=== PATIENT | female | born 1990 | race Caucasian/White ===

== ENCOUNTER 2018-10-25 19:29 | Emergency (ER) | payer MEDICAID, OTHER ==
[~2018-10-25] VITALS: Ht 154.9 cm; Wt 57.2 kg
[2018-10-25 19:45] VITALS: BP 140/94
--- NOTE | 2018-10-25 20:13 | ED Respiratory ---
General Chief Complaint: Respiratory Problems Stated Complaint: SKIN RASH, SOB Nursing Triage Note: Pt. reported that she has been SOB, has been having a IVY, has had 3 weeks of forgetfulness, and feels she has been exposed to mold where she lives. Pt. does not appear to be SOB at this time. O2 sats are 98% on room air. History of Present Illness Date Seen by Provider: Oct 25, 2018 Time Seen by Provider: 19:53 Timing/Duration: constant Severity: mild Prior Episodes/Possible Cause: allergen exposure Modifying Factors: Worse With Activity Associated Symptoms: shortness of breath This is a 28-year-old female who complains of a rash. He is concerned that this is related to mold exposure, she just had blood tests drawn today at her doctor' s office for that specific purpose. She also mentions that she's been feeling slightly short of breath since before giving to her son this past July , this is not worse recently. She's had a mild nonproductive cough, also some nausea and some nonbloody non-melanotic diarrhea. No abdominal pain. She has mild chest congestion but no chest pain per se. No pleuritic pain. No leg swelling. No history of blood clots. No hormonal therapy. No hemoptysis. Her rash is itchy. She has not tried any specific interventions like Benadryl or topical treatments. She has no symptoms affecting the mucous membranes. Allergies and Home Medications Allergies Coded Allergies: No Known Drug Allergies (Unverified , 10/25/18) Patient Home Medication List Home Medication List Reviewed: Yes Review of Systems Review of Systems Constitutional: no symptoms reported EENTM: no symptoms reported Respiratory: see HPI Cardiovascular: see HPI Gastrointestinal: see HPI Genitourinary: no symptoms reported Musculoskeletal: no symptoms reported Skin: see HPI Psychiatric/Neurological: No Symptoms Reported Hematologic/Lymphatic: No Symptoms Reported Immunological/Allergic: no symptoms reported Past Llfkgva-Ilngyn-Rsaqhm Hx Patient Social History Recent Foreign Travel: No Contact w/Someone Who Travel: No Recent Infectious Disease Expo: No Past Medical History : No Physical Exam Vital Signs - First Documented 10/25/18 19:45 Temp 98.1 Pulse 88 Resp 16 B/P (MAP) 140/94 (109) Pulse Ox 98 Capillary Refill : Less Than 3 Seconds Height: 5'1.00" Weight: 126lbs. oz. 57.038374fb; BMI Method:Stated General Appearance: no apparent distress Eyes: Bilateral Eye Normal Inspection HEENT: normal ENT inspection, pharynx normal Respiratory: lungs clear; No crackles, No rales, No rhonchi, No stridor Cardiovascular: normal peripheral pulses, regular rate, rhythm, other (brisk capillary refill) Gastrointestinal: non tender, soft Neurologic/Psychiatric: alert, normal mood/affect, oriented x 3; No abnormal gait Skin: warm/dry, other (scattered very faintly erythematous and blanching macular lesions on the extremities, sparing the palms and soles, no petechiae) Progress/Results/Core Measures Suspected Sepsis Recent Fever Within 48 Hours: No Infection Criteria Present: None New/Unexplained Altered Menta: Yes Sepsis Screen: No Definite Risk SIRS Temperature:98.1 Pulse: 88 Respiratory Rate: 16 Laboratory Tests 10/25/18 20:18: White Blood Count 6.7 Blood Pressure / Mean: Laboratory Tests 10/25/18 20:18: Creatinine 0.72, Platelet Count 380, Total Bilirubin 0.3 Results/Orders Lab Results Laboratory Tests Test 10/25/18 20:18 Range/Units White Blood Count 6.7 4.3-11.0 10^3/uL Red Blood Count 4.81 4.35-5.85 10^6/uL Hemoglobin 12.8 11.5-16.0 G/DL Hematocrit 41 35-52 % Mean Corpuscular Volume 27 L 80-99 FL Mean Corpuscular Hemoglobin 27 25-34 PG Mean Corpuscular Hemoglobin Concent 31 L 32-36 G/DL Red Cell Distribution Width 14.8 H 10.0-14.5 % Platelet Count 380 130-400 10^3/uL Mean Platelet Volume 9.9 7.4-10.4 FL Urine Test NEGATIVE NEGATIVE Sodium Level 141 135-145 MMOL/L Potassium Level 3.3 L 3.6-5.0 MMOL/L Chloride Level 101 98-107 MMOL/L Carbon Dioxide Level 30 21-32 MMOL/L Anion Gap 10 5-14 MMOL/L Blood Urea Nitrogen 13 7-18 MG/DL Creatinine 0.72 0.60-1.30 MG/DL Estimat Glomerular Filtration Rate > 60 BUN/Creatinine Ratio 18 Glucose Level 99 70-105 MG/DL Calcium Level 9.6 8.5-10.1 MG/DL Corrected Calcium 8.5-10.1 MG/DL Total Bilirubin 0.3 0.1-1.0 MG/DL Aspartate Amino Transf (AST/SGOT) 23 5-34 U/L Alanine Aminotransferase (ALT/SGPT) 18 0-55 U/L Alkaline Phosphatase 76 40-136 U/L Troponin T < 6 <=10 NG/L Total Protein 8.3 H 6.4-8.2 GM/DL Albumin 4.7 H 3.2-4.5 GM/DL My Orders Orders - DIANE DALE T DO Chest Pa/Lat (2 View) (10/25/18 19:45) Ekg Tracing (10/25/18 19:45) Hcg,Qualitative Urine (10/25/18 19:45) Cbc No Diff (10/25/18 20:02) Comprehensive Metabolic Panel (10/25/18 20:02) Vital Signs/I&O 10/25/18 10/25/18 19:45 19:45 Temp 98.1 Pulse 88 Resp 16 B/P (MAP) 140/94 (109) Pulse Ox 98 Capillary Refill : Less Than 3 Seconds Progress Note : Progress Note This is a 28-year-old female who complains of a rash for which she is being evaluated by her primary care physician, some suspicion of mold exposure from her apartment. She has no signs of anaphylaxis. The rash is very nonspecific. There is no mucous membrane involvement, no new systemic symptoms other than ongoing mild shortness of breath and a mild dry cough and diarrhea. She is nontoxic appearing. Slightly hypertensive at initial check, I advised patient to have this rechecked with her primary care physician. We will check basic labs , chest x-ray to evaluate for either focal infiltrate or signs of cardiomegaly and pulmonary vascular congestion although physical exam is not suggestive of CHF. We will check an ECG as well. If our workup is unremarkable I recommended the patient trial Benadryl and follow-up with her primary care physician, she will return for any new or worsening symptoms. ECG EKG : Comment 2026: Normal sinus rhythm rate of 75, normal axis, no ST or T-wave abnormalities. Diagnostic Imaging Diagonstic Imaging: Xray Comments EP interpretation: Airway is midline. No obvious bony or soft tissue abnormalities. Cardiomediastinal silhouette is unremarkable. Diaphragmatic borders are grossly normal with no effusions. No pneumothoraces. There is no focal infiltrate. Reviewed: Reviewed by Me Departure Impression Primary Impression: Rash Additional Impressions: Dyspnea Hypertension Disposition: HOME, SELF-CARE Condition: Stable Departure-Patient Inst. Referrals: NO,LOCAL PHYSICIAN (PCP) Primary Care Physician Patient Instructions: Blood Pressure Testing and Measurement DIANE DALE DO Oct 25, 2018 20:13
[2018-10-25 20:41] LABS: HEMOGLOBIN 12.8 G/DL (11.5-16.0); MEAN PLATELET VOLUME 9.9 FL (7.4-10.4); RED CELL DISTRIBUTION WIDTH 14.8 % (10.0-14.5); WHITE BLOOD COUNT 6.7 10^3/uL (4.3-11.0)
--- NOTE | 2018-10-25 20:58 | Diagnostic Imaging Report ---
INDICATION: Headache. Shortness of air COMPARISON: None FINDINGS: Frontal and lateral views of the chest demonstrate normal heart size and pulmonary vascularity. The lungs are clear. There are no signs of infiltrate, pleural effusions or pneumothoraces. The visualized osseous structures show no acute abnormalities. IMPRESSION: 1. No acute process. No signs of infiltrates, effusions or pneumothoraces. Dictated by: Dictated on workstation # [id number]
--- OUTSIDE RECORDS SUMMARY | 2018-10-25 20:59 | XMS REPORT ---
Author Author MILTON BARLOW Organization [facility] Address Unknown Care Team Providers Care Adjuster Arbitrator Name Role Phone MILTON BARLOW Unavailable PROBLEMS Type Condition ICD9-CM Code NOH34-PD Code Onset Dates Condition Status SNOMED Code Assessment Dental examination Z01.20 Mar, Active [id number] ALLERGIES Substance Reaction Event Type Date Status N.K.D.A. Unknown Non Drug Allergy Mar, Unknown SOCIAL HISTORY No smoking Hx information available PLAN OF CARE VITAL SIGNS Blood pressure systolic 115 mmHg 2016-04-14 Blood pressure diastolic 77 mmHg 2016-04-14 MEDICATIONS Medication Instructions Dosage Frequency Start Date End Date Duration Status Amoxicillin 500 MG Orally 4 times a day 1 capsule 6h 7 days Active [place] 5-325 MG Orally every 6 hrs 1 tablet as needed 6h 4 days Active RESULTS No Results PROCEDURES Procedure Date Ordered Related Diagnosis Body Site LTD ORAL EVALUATION - PROBLEM FOCUS Apr 14, 2016 INTRAORL-PERIAPICAL 1 FILM [id number] Apr 14, 2016 IMMUNIZATIONS No Known Immunizations
--- OUTSIDE RECORDS SUMMARY | 2018-10-25 20:59 | XMS REPORT ---
Author Author MILTON BARLOW [facility] Address Unknown Care Team Providers Care School Psychology Specialist Name Role Phone MILTON BARLOW Unavailable PROBLEMS Unknown Problems ALLERGIES No Information SOCIAL HISTORY Never Assessed PLAN OF CARE VITAL SIGNS MEDICATIONS Unknown Medications RESULTS No Results PROCEDURES Procedure Date Ordered Result Body Site Billing Notes on claim Oct 21, 2016 IMMUNIZATIONS No Known Immunizations
[2018-10-25 21:00] LABS: ALANINE AMINOTRANSFERASE 18 U/L (0-55); ALBUMIN 4.7 GM/DL (3.2-4.5); ALKALINE PHOSPHATASE 76 U/L (40-136); BILIRUBIN,TOTAL 0.3 MG/DL (0.1-1.0); BUN/CREATININE RATIO 18; CALCIUM 9.6 MG/DL (8.5-10.1); CARBON DIOXIDE 30 MMOL/L (21-32); CHLORIDE 101 MMOL/L (98-107); CREATININE SERUM 0.72 MG/DL (0.60-1.30); GFR ESTIMATED > 60; GLUCOSE 99 MG/DL (70-105); POTASSIUM 3.3 MMOL/L (3.6-5.0); SODIUM 141 MMOL/L (135-145); TOTAL PROTEIN 8.3 GM/DL (6.4-8.2)
[2018-10-25 21:16] VITALS: BP 138/88
== END 2018-10-25 21:16 | disposition home or self-care (01) ==
LOC: EDUNIT# 19:29 → ER FS 19:31
DX: R21 Rash and other nonspecific skin eruption (principal); R06.00 Dyspnea, unspecified; I10 Essential (primary) hypertension
CPT/HCPCS: 36415; 71046; 80053; 84484; 84703; 85027; 93005

== ENCOUNTER 2023-02-24 20:39 | Observation (INO) | payer MEDICAID ==
[~2023-02-24 20:39] MED LIST: ACET-93 PO; DOCU-239 PO; IBUP-1780 PO; OXC5T PO
--- NOTE | 2023-02-24 20:49 | ED GU-Female ---
General Chief Complaint: OB < 20 WEEKS Stated Complaint: ABNORMAL VAG BLEEDING Source: patient Exam Limitations: no limitations History of Present Illness Date Seen by Provider: Feb 24, 2023 Time Seen by Provider: 20:39 Initial Comments 32-year-old female presents to the emergency department today for vaginal bleeding. She states symptoms started about 2 and half hours ago. She states she was diagnosed with a miscarriage yesterday after about 4 weeks gestation that some mild bleeding but her bleeding increased this evening. No dizziness lightheadedness or shortness of breath. She is G9, P7 with a miscarriage 10 years ago. She had previously seen Dr. Monroe but he recently retired. All other systems reviewed and negative except documented per HPI. Voice recognition software was used to help create this chart Allergies and Home Medications Allergies Coded Allergies: No Known Drug Allergies (Unverified , 10/25/18) Patient Home Medication List Home Medication List Reviewed: Yes Acetaminophen (Acetaminophen) 500 Mg Tablet, 1,000 MG PO Q6HR Prescribed by: AMNA MONROE on 02/05/20618 Docusate Sodium (Dok) 100 Mg Capsule, 100 MG PO BID Prescribed by: AMNA MONROE on 02/05/20618 Ibuprofen (Ibuprofen) 800 Mg Tablet, 800 MG PO Q8HR Prescribed by: AMNA MONROE on 02/05/20618 Oxycodone Hcl (Oxyir Tablet) 5 Mg Tablet, 5 MG PO Q6H PRN for PAIN-SEVERE (8-10) Prescribed by: AMNA MONROE on 02/05/20618 Review of Systems Review of Systems Constitutional: see HPI Past Tildzmt-Yfdwua-Cggxma Hx Patient Social History Tobacco Use?: No Substance use?: No Alcohol Use?: No Pt feels they are or have been: No Seasonal Allergies Seasonal Allergies: Yes Past Medical History Surgeries: No Respiratory: Yes (Has a hx of sport inducded asthma) Asthma Currently Using CPAP: No Currently Using BIPAP: No Cardiac: No Neurological: No Genitourinary: No Gastrointestinal: No Musculoskeletal: No Endocrine: No HEENT: No Cancer: No Psychosocial: No Integumentary: No Recent Skin Changes Blood Disorders: No Family Medical History FH: anemia 19 MOTHER Hypertension 19 FATHER Physical Exam Vital Signs Vital Signs - First Documented 02/24/23 20:41 Temp 36.5 Pulse 100 Resp 18 B/P (MAP) 155/90 (111) Pulse Ox 100 O2 Delivery Room Air Capillary Refill : Height, Weight, BMI Height: 5'1.00" Weight: 126lbs. oz. 57.046355fz; 27.41 BMI Method:Stated General Appearance: WD/WN, no apparent distress HEENT: normal ENT inspection, pharynx normal Neck: non-tender, supple Cardiovascular: regular rate, rhythm, no murmur Respiratory: chest non-tender, lungs clear, normal breath sounds Gastrointestinal: normal bowel sounds, soft, no organomegaly, tenderness (Mild tenderness in the suprapubic region. No rebound or guarding.) Extremities: non-tender, normal inspection, no pedal edema Neurologic/Psychiatric: alert, oriented x 3 Skin: normal color, warm/dry Progress/Results/Core Measures Suspected Sepsis SIRS Temperature: Pulse: Respiratory Rate: Blood Pressure / Mean: Results/Orders My Orders Orders - SHERRY MENEZES DO Cbc And Manual Diff (02/24/23 20:55) Type And Screen (02/24/23 20:56) Ed Iv/Invasive Line Start (02/24/23 20:59) Vital Signs/I&O 02/24/23 20:41 Temp 36.5 Pulse 100 Resp 18 B/P (MAP) 155/90 (111) Pulse Ox 100 O2 Delivery Room Air Capillary Refill : Departure Communication (Admissions) Patient is currently hemodynamically stable, borderline tachycardic with a heart rate of 100. Pelvic exam reveals copious vaginal bleeding. She has some mild abdominal tenderness. We are unable to do a type and screen here. I talked to Dr. Wheat who is on-call for OB. She agrees to transfer for D&C. I spoke to the the housecleaner floor who will arrange bed assignment and call in the OR staff. CBC is pending at this time. Impression Primary Impression: Episode of heavy vaginal bleeding Disposition: 30 STILL A PATIENT Condition: Stable Departure-Patient Inst. Referrals: JAQUAN INFANTE DO (PCP) Primary Care Physician SHERRY MENEZES DO Feb 24, 2023 20:49
[2023-02-24 21:10] LABS: BASOPHILS % (AUTO) 0 % (0-10); EOSINOPHILS # (AUTO) 0.2 10^3/uL (0.0-0.3); EOSINOPHILS % (AUTO) 2 % (0-10); HEMATOCRIT 37 % (35-52); HEMOGLOBIN 12.2 g/dL (11.5-16.0); LYMPHOCYTES # (AUTO) 2.5 10^3/uL (1.0-4.0); LYMPHOCYTES % (AUTO) 23 % (12-44); MEAN CORPUSCULAR HEMOGLOBIN 29 pg (25-34); MEAN CORPUSCULAR HGB CONC 33 g/dL (32-36); MEAN CORPUSCULAR VOLUME 87 fL (80-99); MEAN PLATELET VOLUME 10.1 fL (9.0-12.2); MONOCYTES # (AUTO) 0.6 10^3/uL (0.0-1.0); MONOCYTES % (AUTO) 6 % (0-12); NEUTROPHILS # (AUTO) 7.3 10^3/uL (1.8-7.8); NEUTROPHILS % (AUTO) 68 % (42-75); PLATELET COUNT 332 10^3/uL (130-400); WHITE BLOOD COUNT 10.7 10^3/uL (4.3-11.0)
[2023-02-24 21:24] LABS: BAND NEUTROPHILS 4 %; LYMPHOCYTES % (MANUAL) 16 %; MONOCYTES % (MANUAL) 4 %; NEUTROPHILS % (MANUAL) 67 %
[2023-02-24 21:25] LABS: PLATELET ESTIMATE NORMAL; RBC MORPH NORMAL; REACTIVE LYMPHOCYTES 9 %
[2023-02-24 22:15] VITALS: BP 131/76
--- NOTE | 2023-02-24 22:34 | History & Physical-OB/GYN ---
History of Present Illness History of Present Illness Reason for visit/HPI This 32yo presents to L&D via EMS from [place] [facility] with heavy vaginal bleeding Pt is approximately 4wk and started bleeding at about 1800 this evening It became so heavy that she was saturating an adult diaper. She went to the ER and was continuing to bleed. Vitals were stable and Hgb 12.2 Pt is continuing to bleed presently Date of Admission 02/24/23 Time Seen by a Provider: 22:20 I consulted on this patient on 02/24/23 22:28 Attending Physician Jacinto Kaba DO Admitting Physician Admitting Physician:beatriz Ferro DO Attending Physician: Consult Allergies and Home Medications Allergies Coded Allergies: No Known Drug Allergies (Unverified , 10/25/18) Patient Home Medication List Home Medication List Reviewed: Yes Acetaminophen (Acetaminophen) 500 Mg Tablet, 1,000 MG PO Q6HR Prescribed by: AMNA SEAY on 02/05/20618 Last Action: Reviewed Docusate Sodium (Dok) 100 Mg Capsule, 100 MG PO BID Prescribed by: AMNA SEAY on 02/05/20618 Last Action: Reviewed Ibuprofen (Ibuprofen) 800 Mg Tablet, 800 MG PO Q8HR Prescribed by: AMNA SEAY on 02/05/20618 Last Action: Reviewed Oxycodone Hcl (Oxyir Tablet) 5 Mg Tablet, 5 MG PO Q6H PRN for PAIN-SEVERE (8-10) Prescribed by: AMNA SEAY on 02/05/20618 Last Action: Reviewed Past Gybzmni-Walwtc-Lqwjuh Hx Patient Social History Marrital Status: single Number of Children: 7 Smoking Status: Never a Smoker 2nd Hand Smoke Exposure: No Recent Hopitalizations: No Alcohol Use?: No Pt feels they are or have been: No Seasonal Allergies Seasonal Allergies: Yes Surgeries No Respiratory Yes (Has a hx of sport inducded asthma) Asthma (exercise induced) Currently Using CPAP: No Currently Using BIPAP: No Cardiovascular No Neurological No Reproductive System : Yes Hx : 9 Hx Para: 7 Hx Total # of Abortions (Spona: 1 Hx Reproductive Disorders: No Sexually Transmitted Disease: No HIV/AIDS: No Female Reproductive Disorders: Denies Genitourinary No Gastrointestinal No Musculoskeletal No Endocrine History of Endocrine Disorders: No HEENT History of HEENT Disorders: No Cancer No Psychosocial History of Psychiatric Problem: No Integumentary History of Skin or Integumenta: No Skin/Integumentary Disorders: Recent Skin Changes Blood Transfusions History of Blood Disorders: No Family Medical History Family Hx: FH: anemia 19 MOTHER Hypertension 19 FATHER Review of Systems Constitutional: see HPI EENTM: see HPI Respiratory: see HPI Cardiovascular: see HPI Gastrointestinal: see HPI Genitourinary: see HPI Musculoskeletal: see HPI Skin: see HPI Psychiatric/Neurological: No Symptoms Reported, See HPI Physical Exam Physical Exam Vital Signs Vital Signs Date Time Temp Pulse Resp B/P (MAP) Pulse Ox O2 Delivery O2 Flow Rate FiO2 02/24/23 21:14 36.5 100 18 155/90 100 Room Air 02/24/23 20:41 36.5 100 18 155/90 (111) 100 Room Air Capillary Refill : Less Than 3 Seconds Labs Laboratory Tests 02/24/23 21:05: White Blood Count 10.7, Red Blood Count 4.23, Hemoglobin 12.2, Hematocrit 37, Mean Corpuscular Volume 87, Mean Corpuscular Hemoglobin 29, Mean Corpuscular Hemoglobin Concent 33, Red Cell Distribution Width 13.0, Platelet Count 332, Mean Platelet Volume 10.1, Immature Granulocyte % (Auto) 0, Neutrophils (%) (Auto) 68, Lymphocytes (%) (Auto) 23, Monocytes (%) (Auto) 6, Eosinophils (%) (Auto) 2, Basophils (%) (Auto) 0, Neutrophils # (Auto) 7.3, Lymphocytes # (Auto) 2.5, Monocytes # (Auto) 0.6, Eosinophils # (Auto) 0.2, Basophils # (Auto) 0.0, Immature Granulocyte # (Auto) 0.0, Neutrophils % (Manual) 67, Lymphocytes % (Manual) 16, Monocytes % (Manual) 4, Band Neutrophils 4, Reactive Lymphocytes 9, Platelet Estimate NORMAL, Blood Morphology Comment NORMAL General Appearance: No Apparent Distress, WD/WN Respiratory: Chest Non Tender, Lungs Clear, Normal Breath Sounds Cardiovascular: Regular Rate, Rhythm, No Edema Abdominal: normal bowel sounds, non tender, soft, no organomegaly, no pulsatile mass Gynecology/General: No urethral discharge, Other (bleeding) Labia: WNL Vagina: WNL Cervix: WNL Cervix OS: open Uterus: Enlarged (consistent with ) Ovaries: WNL Pelvic Exam: tender uterus, vaginal bleeding Extremity: Normal Capillary Refill, Normal Inspection, Normal Range of Motion, Non Tender, No Calf Tenderness, No Pedal Edema Assessment/Plan Assessment and Plan Problems: (1) Incomplete Status: Acute Assessment & Plan: Incomplete AB Proceed to Suction D&C Risks, benefits and alternatives d/w pt including but limited to RISKS: Infection, bleeding, injury to the uterus, nerve and limb damage, VTE, anesthesia risks; BENEFITS: removal of the rest of the products of conception, decreased bleeding, prevent hemorrhage; ALTERNATIVES: Continue monitoring The patient verbalized understanding signed consents and is ready to proceed to suction D&C (2) Episode of heavy vaginal bleeding Status: Acute Assessment & Plan: Stable at this time. Type and screen Admission Diagnosis Admission Status: Observation BEATRIZ FERRO DO Feb 24, 2023 22:33
--- NOTE | 2023-02-24 22:40 | Progress Note-Pre Operative ---
Pre-Operative Progress Note Date H&P Reviewed: Feb 24, 2023 Time H&P Reviewed: 22:20 History & Physical: H&P Reviewed, Patient Examed Pre-Operative Diagnosis: Incomplete AB, hemorrhaging Plan for suction D&E DENISE FERRO DO Feb 24, 2023 22:40
[2023-02-24] MEDS ORDERED: MIDAZOLAM 2 MG/2 ML (VERSED) VIAL ONE (22:50)
[2023-02-24] MEDS ORDERED: ONDANSETRON 4 MG/2 ML (SDV) Z0FRAN ONE (22:50)
[2023-02-24] MEDS ORDERED: LIDOCAINE PF 2% 5 ML (XYLOCAINE) VIAL ONE (22:50)
[2023-02-24] MEDS ORDERED: KETOROLAC 30 MG/ML VIAL ONE (22:50)
[2023-02-24] MEDS ORDERED: proPOfol 200 MG/20 ML (DIPRIVAN) VIAL IV ONE (22:50)
[2023-02-24] MEDS ORDERED: fentaNYL INJ 100 MCG/2 ML AMP ONE (22:50)
[2023-02-24] MEDS ORDERED: OXYTOCIN (PITOCIN) 10 UNIT/ML VIAL ONE (23:11)
[2023-02-24] MEDS ORDERED: SEVOFLURANE (ULTANE) 15 ML INHAL SOLN ONE (23:23)
[2023-02-24 23:28] VITALS: BP 117/78
[2023-02-24 23:40] VITALS: BP 117/81
--- NOTE | 2023-02-24 23:41 | Hysteroscopy D&C Operative ---
Hysteroscopy D&C Note Hysteroscopy D&C Note Date of Procedure: 02/24/23 Preoperative Diagnosis: Prerna Dyer is a (32 /Para 9 / 7, Gestational Age (wks) with Incomplete with hemorrhage Postoperative Diagnosis: Same Surgeon: DENISE FERRO Qa Specialist: [none] Anesthesia: General LMA Name of the Procedure: Suction dilatation and curettage Findings of the Procedure: Products of conception EBL: 50 Specimen(s) collected/removed: Products of conception Complications: None[] Condition: []Stable to recovery room Indications for Procedure: /Para 9 / 7 presenting with Positive pregn audrey test and hemorrhaging. Risks, benefits and alternatives to the proposed procedure were discussed with the patient and informed consent was obtained. Description of Procedure: The patient was taken to the operating room and placed in the dorsal supine position. General anesthesia was obtained without difficulty by our anesthesia colleagues. Her legs were placed in [place] stirrups and she was moved to the dorsal lithotomy position. The vagina, perineum and vulva were prepped and draped in the typical sterile fashion.There is a large clot at the vaginal introitus which was collected and added to the pathology specimen. The bladder was emptied for a total of 50 cc. A weighted speculum was placed in the vaginal vault and the anterior lip of the cervix was grasped with a single-tooth tenaculum. A #9 Georgian curved suction catheter was then inserted into the uterine cavity and suction was applied. The products of conception were removed. The suction catheter was passed 3 times. The active bleeding that had been there had ceased. Uterus started to clamp down. Uterus was massaged bimanually. And 20 units of Pitocin was placed inside the IV bag. The single-tooth and weighted speculum were removed and the patient tolerated the procedure well was taken to recovery room in stable condition. The procedure was complete and all instruments were removed from the vagina. Sponge and instrument counts were correct. The patient was awakened from anesthesia and taken to the recovery room in stable condition. Vitals - Labs Vital Signs - I&O Vital Signs Date Time Temp Pulse Resp B/P (MAP) Pulse Ox O2 Delivery O2 Flow Rate FiO2 02/24/23 21:14 36.5 100 18 155/90 100 Room Air 02/24/23 20:41 36.5 100 18 155/90 (111) 100 Room Air Labs Laboratory Tests 02/24/23 21:05: White Blood Count 10.7, Red Blood Count 4.23, Hemoglobin 12.2, Hematocrit 37, Mean Corpuscular Volume 87, Mean Corpuscular Hemoglobin 29, Mean Corpuscular Hemoglobin Concent 33, Red Cell Distribution Width 13.0, Platelet Count 332, Mean Platelet Volume 10.1, Immature Granulocyte % (Auto) 0, Neutrophils (%) (Auto) 68, Lymphocytes (%) (Auto) 23, Monocytes (%) (Auto) 6, Eosinophils (%) (Auto) 2, Basophils (%) (Auto) 0, Neutrophils # (Auto) 7.3, Lymphocytes # (Auto) 2.5, Monocytes # (Auto) 0.6, Eosinophils # (Auto) 0.2, Basophils # (Auto) 0.0, Immature Granulocyte # (Auto) 0.0, Neutrophils % (Manual) 67, Lymphocytes % (Manual) 16, Monocytes % (Manual) 4, Band Neutrophils 4, Reactive Lymphocytes 9, Platelet Estimate NORMAL, Blood Morphology Comment NORMAL DENISE FERRO DO Feb 24, 2023 23:41
--- NOTE | 2023-02-24 23:44 | Short Stay Summary ---
Discharge Summary Hospital Course Was the Problem List Reviewed?: Yes Problems/Dx: (1) Incomplete Status: Acute Assessment & Plan: Status post suction D&C. Discharged home once meets PACU criteria Follow-up in office in 1 week. (2) Episode of heavy vaginal bleeding Status: Acute Assessment & Plan: Resolved Final Diagnosis: Status post suction D&C Hospital Course Date of Admission: Feb 24, 2023 at 22:16 Admission Diagnosis : Family Physician/Provider: Jacinto Kaba DO Date of Discharge: 02/24/23 Discharge Diagnosis: Status post suction D&C due to incomplete AB Hospital Course: Patient was admitted for observation for an incomplete AB. She had been transferred from [facility] to our facility to undergo a suction D&E which she did. She tolerated the procedure well and was stable postoperatively. She was discharged home with pain medications and instructions. Labs and Pending Lab Test: Laboratory Tests 02/24/23 21:05: White Blood Count 10.7, Red Blood Count 4.23, Hemoglobin 12.2, Hematocrit 37, Mean Corpuscular Volume 87, Mean Corpuscular Hemoglobin 29, Mean Corpuscular Hemoglobin Concent 33, Red Cell Distribution Width 13.0, Platelet Count 332, Mean Platelet Volume 10.1, Immature Granulocyte % (Auto) 0, Neutrophils (%) (Auto) 68, Lymphocytes (%) (Auto) 23, Monocytes (%) (Auto) 6, Eosinophils (%) (Auto) 2, Basophils (%) (Auto) 0, Neutrophils # (Auto) 7.3, Lymphocytes # (Auto) 2.5, Monocytes # (Auto) 0.6, Eosinophils # (Auto) 0.2, Basophils # (Auto) 0.0, Immature Granulocyte # (Auto) 0.0, Neutrophils % (Manual) 67, Lymphocytes % (Ma nual) 16, Monocytes % (Manual) 4, Band Neutrophils 4, Reactive Lymphocytes 9, Platelet Estimate NORMAL, Blood Morphology Comment NORMAL Home Meds Active Dok (Docusate Sodium) 100 Mg Capsule 100 Mg PO BID Acetaminophen 500 Mg Tablet 1,000 Mg PO Q6HR Oxyir Tablet (Oxycodone HCl) 5 Mg Tablet 5 Mg PO Q6H PRN Ibuprofen 800 Mg Tablet 800 Mg PO Q8HR Assessment/Pt Instructions Stable. DC to home follow-up in 1 week. Pelvic rest Discharge Instructions Discharge Diet: No Restrictions, Regular Diet Activity as Tolerated: Yes Discharge Physical Examination Allergies: Coded Allergies: No Known Drug Allergies (Unverified , 10/25/18) Discharge Summary Date of Admission Feb 24, 2023 at 22:16 Date of Discharge Discharge Date: Feb 25, 2023 Discharge Diagnosis (1) Incomplete Status: Acute Assessment & Plan: Incomplete AB Proceed to Suction D&C Risks, benefits and alternatives d/w pt including but limited to RISKS: Infection, bleeding, injury to the uterus, nerve and limb damage, VTE, anesthesia risks; BENEFITS: removal of the rest of the products of conception, decreased bleeding, prevent hemorrhage; ALTERNATIVES: Continue monitoring The patient verbalized understanding signed consents and is ready to proceed to suction D&C (2) Episode of heavy vaginal bleeding Status: Acute Assessment & Plan: Stable at this time. Type and screen DENISE FERRO DO Feb 24, 2023 23:44
[2023-02-24] MEDS ORDERED: ONDANSETRON 4 MG/2 ML (SDV) Z0FRAN IVP PRN (23:45)
[2023-02-24] MEDS ORDERED: morphine INJ 10 MG/ML 1ML (SYR OR VIAL) IVP ONE (23:45)
[2023-02-24] MEDS ORDERED: MEPERIDINE (DEMEROL) INJ 50 MG/ML IVP ONE (23:45)
[2023-02-24] MEDS ORDERED: METOCLOPRAMIDE INJ 10 MG/2 ML (REGLAN) IV PRN (23:45)
[2023-02-24] MEDS ORDERED: D5 LR IV SOLUTION 1,000 ML IV SCH (23:45)
[2023-02-24 23:50] VITALS: BP 112/71
[2023-02-25] VITALS: BP 120/72
[2023-02-25 00:05] VITALS: BP 129/69
[2023-02-25 02:19] VITALS: BP 118/75
[2023-02-25 02:20] VITALS: BP 118/75
--- NOTE | 2023-02-25 14:27 | Anesthesia-General Post-Op ---
General Patient Condition Mental Status/LOC: Same as Preop Cardiovascular: Satisfactory Nausea/Vomiting: Absent Respiratory: Satisfactory Pain: Controlled Complications: Absent Post Op Complications Complications None Follow Up Care/Instructions Patient Instructions None needed. Anesthesia/Patient Condition Patient Condition Patient is doing well, no complaints, stable vital signs, no apparent adverse anesthesia problems. No complications reported per nursing. NATHALY PAYNE CRNA Feb 25, 2023 14:27
== END 2023-02-25 02:20 | disposition home or self-care (01) ==
LOC: EDUNIT# 20:39 → ER FS 20:40 → LDRP 22:16 → UNDOADMOB 22:16 → LDRP 22:50 → UNDODISOB 02-25 02:20
PROVIDERS: ADMIT Obstetrics & Gynecology; ATTEND Obstetrics & Gynecology
DX: O03.1 Delayed or excessive hemorrhage following incomplete spontaneous abortion (principal); Z28.310 Unvaccinated for COVID-19
CPT/HCPCS: 36415; 85007; 85027; 86850; 86900; 86901; G0378